=== PATIENT | female | born 1945 | race Caucasian/White ===

== ENCOUNTER → 2016-12-02 | Day surgery (SDC) | payer MEDICARE ==
[~2016-12-02] VITALS: Ht 172.7 cm; Wt 82.8 kg
[~2016-12-02] MED LIST: *morphine SULFATE 8 MG/ML PERIprocedure ONLY ONE; ACETAMINOPHEN 1000 MG/100 ML 100 ML IV ONE; BACITRACIN TOP OINT 15 GM TUBE ONE; CHLORHEXIDINE GLUCONATE 2 % 1 PACK (2 CLOTHS) TOPICAL PRN; CHLORHEXIDINE GLUCONATE 4% SOLN 120 ML BTL TOPICAL SCH; DEXAMETHASONE SOD PHOS 4 MG/ML VIAL IV ONE; DO NOT ADM ANY ANTICOAGULANT DRUGS PRN; FAMOTIDINE 20 MG/2 ML VIAL ONE; GENTAMICIN SULFATE 80 MG/2 ML VIAL ONE; GLYCOPYRROLATE 1 MG/5 ML SYRINGE IV PUSH ONE; INSULIN HUMAN REGULAR 1,000 UNITS/10 ML VIAL SQ PRN; KETOROLAC TROMETHAMINE 30 MG/ML (IVP) VIAL IVP ONE; LACTATED RINGER'S 1000 ML INJ 1,000 ML IV ONE; LACTATED RINGER'S 1000 ML IV PRN; LIDOCAINE HCL 1% PF 5 ML AMPULE OTHER ONE; METOPROLOL TARTRATE 25 MG TAB PO PRN; MIDAZOLAM HCL 2 MG/2 ML VIAL IV ONE; MORPHINE SULFATE 4 MG/ML INJ IV PUSH PRN; NEOSTIGMINE 3 MG/3 ML SYR IV ONE; ONDANSETRON HCL 4 MG/2 ML VIAL IV PUSH ONE; ONDANSETRON HCL 4 MG/2 ML VIAL IV PUSH PRN; OXYB5TAB10 PO; PERC5TAB12 PO; PHENYLEPH/NS 1000 MCG/10 ML SYR IV ONE; POVIDONE IODINE 5% (ANTISEPSIS KIT) 4 APPLICATIONS EACH NARE PRN; PROPOFOL 200 MG/20 ML AMP IV ONE; ROCURONIUM INJ 50 MG/5 ML SYRINGE IV PUSH ONE; SODIUM CHLOR 0.9% 250 ML INJ 250 ML ONE; SODIUM CHLORID 0.9% 500 ML IV PRN; SODIUM CHLORIDE 0.9% FLUSH 10 ML FLUSH IV FLUSH PRN; SODIUM CHLORIDE 0.9% FLUSH 10 ML FLUSH IV FLUSH SCH; VANCOMYCIN 1000 MG/NS 250 ML (for <70 kg) IV SCH; VANCOMYCIN HCL 1000 MG VIAL ONE; ceFAZolin 2 GM PREMIX 50 ML IV SCH; ePHEDrine/NS 25 MG/5 ML SYR IV ONE; oxyCODONE/ACETAMINOPHEN 5 MG/325 MG TAB PO PRN
--- NOTE | 2016-12-02 11:46 | RADRPT ---
EXAM DATE/TIME: 12/02/2016 11:19 [facility] COMPARISON: No previous studies available for comparison. INDICATIONS : Evaluate for pneumonia, pneumothorax, or communicable disease. Pre-op, ORIF elbow. MEDICAL HISTORY : None. SURGICAL HISTORY : None. ENCOUNTER: Initial ACUITY: 1 day PAIN SCORE: 0/10 LOCATION: Bilateral chest FINDINGS: A single view of the chest demonstrates the lungs to be symmetrically aerated without evidence of mas s, infiltrate or effusion. The cardiomediastinal contours are unremarkable. Osseous structures are intact. CONCLUSION: No acute disease. Kahlil Barajas MD on December 02, 2016 at 11:44 Board Certified Radiologist. This report was verified electronically.
[2016-12-02 12:10] LABS: AUTOMATED NEUTROPHIL # 3.6 TH/MM3 (1.8-7.7); BASOPHIL % 0.5 % (0.0-2.0); EOSINOPHIL # 0.1 TH/MM3 (0-0.4); EOSINOPHIL % 1.6 % (0.0-4.0); HEMATOCRIT 39.6 % (35.0-46.0); HEMO FLAGS DIFF FINAL; LYMPHOCYTE # 1.6 TH/MM3 (1.0-4.8); MEAN CELL VOLUME 85.5 FL (80.0-100.0); MEAN CORPUSCULAR HEMOGLOBIN 28.5 PG (27.0-34.0); MEAN CORPUSCULAR HGB CONC 33.4 % (32.0-36.0); MONO % 7.8 % (0.0-8.0); NEUT % 62.1 % (16.0-70.0); PLATELET COUNT 209 TH/MM3 (150-450); RED BLOOD COUNT 4.63 MIL/MM3 (4.00-5.30); RED CELL DISTRIBUTION WIDTH 13.9 % (11.6-17.2); WHITE BLOOD COUNT 5.8 TH/MM3 (4.0-11.0)
[2016-12-02 12:20] LABS: PROTHROMBIN TIME - PATIENT 10.7 SEC (9.8-11.6)
--- NOTE | 2016-12-02 14:42 | EKG ---
Date Performed: 12/02/2016 Time Performed: 11:00:47 PTAGE: 71 years EKG: Sinus rhythm NORMAL ECG NO PREVIOUS TRACING DOCTOR: Randy Vizcaino Interpretating Date/Time 12/02/2016 14:37:18
--- NOTE | 2016-12-02 14:50 | PD.OP ---
cc: Sagar Mckeon Jr., MD Operative Report Date of Surgery: Dec 02, 2016 Preoperative Diagnosis: Right olecranon fracture Postoperative Diagnosis: Same Procedure: Open reduction internal fixation right olecranon Anesthesia: Gen. Surgeon: Sagar Mckeon Business Investor(s): STACIE Thompson The surgical procedure was assisted by my Advanced Registered Nurse Practitioner. My HEALTH ANALYTICS CONSULTANT presence was necessary throughout this case for the manipulation and positioning of the surgical extremity. My HEALTH ANALYTICS CONSULTANT was assisting me throughout the duration of this procedure. The skill set of an Advance Registered Nurse Practitioner was medically necessary to complete this procedure. During the surgical case, the registered nurse surgical services was working at the back table and the Advance Registered Nurse Practitioner was directly assisting me. Resident Surgeon: None Operation and Findings: Patient was seen and evaluated preoperatively and found to have a displaced olecranon fracture. Informed consent was obtained after detailed discussion of risk and benefits including bleeding, infection, injury to arteries, nerves, and blood vessels, weakness and numbness of hand, and tendon rupture. Informed consent was obtained. Patient received IV antibiotics prior to incision. Timeout procedure was performed. The RIGHT Operative extremity was prepped with alcohol followed by Hibiclens and draped usual sterile fashion. A standard direct posterior approch to the olecranon was performed. Dissection taken down to the olecranon process and then distal to the proximal shaft. A transverse displaced olecranon fracture was identified.The ulnar nerve was identified in the groove and was kept in direct visualization and protected throughout the entire procedure. The fracture site was now visualized. The fracture ends were sharply debrided and cleaned. The articular surface was reduced. Fracture fragments were manipulated to achieve excellent reduction. K wires were used to hold provisional fixation. Fluoroscopy confirmed appropriate alignment of fracture. A Synthes olecranon plate was selected . Plate was provisionally fixed to bone with K wires. 2.7 screws and 3.5 cortical screws were used to compress plate to bone. Fluoroscopy confirmed appropriate alignment of fracture with well-placed hardware. Additional screws were now placed. Screws were predrilled and measured for appropriate length. K wires were removed. Final fluoroscopy revealed excellent reduction of fracture with well-placed hardware. The wound was thoroughly irrigated with sterile saline. Subcutaneous tissue was closed with 2-0 vicryl, 3-0 Vicryl and skin was closed with 2.0 nylon. Sterile dressings were applied with Xeroform, 4 x 4, soft roll, and a well padded long-arm posterior splint. Patient was awakened and transferred to recovery room in stable condition IMPLANTS USED Synthes POSTP-OP PLAN OF ACTIVITY Antibiotics: Ancef Antiocoagulation: OOB TID. SCD Weight bearing status: NWB Dressing: Do not remove splints/cast. Dispo: expected discharge home today Sagar Mckeon Jr., MD Dec 02, 2016 14:50
--- NOTE | 2016-12-02 14:53 | RADRPT ---
EXAM DATE/TIME: 12/02/2016 14:33 [facility] COMPARISON: No previous studies available for comparison. INDICATIONS : ORIF of the right elbow. MEDICAL HISTORY : None. SURGICAL HISTORY : None. ENCOUNTER: Subsequent ACUITY: 1 day PAIN SCORE: Non-responsive. LOCATION: Right elbow. CONCLUSION: Fluoroscopic images during placement of compression plate and screws along the olecranon which is bartolo r anatomic. Jamaal Castaneda MD on December 02, 2016 at 14:51 Board Certified Radiologist. This report was verified electronically.
[2016-12-02 16:40] VITALS: BP 117/62; PULSE 88; RESP 16; TEMP 97.5; O2SAT 94
== END | disposition home or self-care (01) ==
LOC: HSDC 10:28
PROVIDERS: ATTEND Orthopaedic Surgery
DX: S52.021A Displaced fracture of olecranon process without intraarticular extension of right ulna, initial encounter for closed fracture (principal); W18.30XA Fall on same level, unspecified, initial encounter; Y93.01 Activity, walking, marching and hiking; Z01.810 Encounter for preprocedural cardiovascular examination; Z01.818 Encounter for other preprocedural examination
CPT/HCPCS: 01740; 24685; 71010; 73070; 76000; 85025; 85610; 86850; 86900; 86901; 93005; C1713; J0131; J1100; J1580; J1885; J2250; J2270; J2370; J2405; J2710; J3010; J3370; J7050; J7120